=== PATIENT | male | born 1990 ===

== ENCOUNTER 2017-08-24 08:38 | Emergency (ER) | payer BC, OTHER ==
[2017-08-24 09:04] VITALS: BP 145/82
--- NOTE | 2017-08-24 09:27 | UC ---
Throat Pain/Nasal Michael HPI - HPI Summary HPI Summary: Sore throat since yesterday. 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 No fever, vomiting or rashes. There is some skin sloughing of the left roof of the mouth that occurred yesterday. - History of Current Complaint Chief Complaint: UCRespiratory Stated Complaint: ST Time Seen by Provider: 08/24/17 09:19 Hx Obtained From: Patient Onset/Duration: Gradual Onset, Lasting Days Severity: Moderate Pain Intensity: 0 Cough: None Associated Signs & Symptoms: Positive: Dysphagia. Negative: Sinus Discomfort, Nasal Discharge, Fever, Vomiting, Rash - Allergies/Home Medications Allergies/Adverse Reactions: Allergies Allergy/AdvReac Type Severity Reaction Status Date / Time No Known Allergies Allergy Verified 08/24/17 08:57 Home Medications: Home Medications Ascorbic Acid [Vitamin C] 500 mg PO DAILY 08/24/17 [History Confirmed 08/24/17] Multivitamin [Multivitamins] 1 each PO DAILY 08/24/17 [History Confirmed ] PMH/Surg Hx/FS Hx/Imm Hx Previously Healthy: Yes - Surgical History Surgical History: Yes Surgery Procedure, Year, and Place: [place] - Family History Known Family History: Positive: Other - no throat related fh. - Social History Alcohol Use: None Substance Use Type: None Smoking Status (MU): Never Smoked Tobacco Review of Systems ENT: Sore Throat All Other Systems Reviewed And Are Negative: Yes Physical Exam Triage Information Reviewed: Yes Appearance: Well-Appearing, No Pain Distress, Well-Nourished Vital Signs: Initial Vital Signs Temp 98.5 F 08/24/17 08:59 Pulse 77 08/24/17 08:59 Resp 20 08/24/17 08:59 BP 145/82 08/24/17 08:59 Pulse Ox 100 08/24/17 08:59 Vital Signs Reviewed: Yes Eyes: Positive: Conjunctiva Clear. Negative: Conjunctiva Inflamed ENT: Positive: Pharyngeal erythema, TMs normal, Uvula midline. Negative: Nasal congestion, Nasal drainage, TM bulging, TM dull, TM red, Tonsillar swelling, Tonsillar exudate, Trismus, Muffled voice Neck exam: Normal Neck: Positive: Supple, Nontender, No Lymphadenopathy Respiratory: Positive: Lungs clear, Normal breath sounds, No respiratory distress, No accessory muscle use. Negative: Respiratory distress, Decreased breath sounds, Accessory muscle use, Crackles, Rhonchi, Stridor Cardiovascular: Positive: No Murmur, Pulses Normal, Brisk Capillary Refill Abdomen Description: Negative: Distended, Guarding Musculoskeletal: Positive: ROM Intact, No Edema Neurological: Positive: Alert, Muscle Tone Normal. Negative: Fatigued Psychological: Positive: Age Appropriate Behavior Skin: Negative: rashes Throat Pain/Nasal Course/Dx - Differential Dx/Diagnosis Provider Diagnoses: sore throat- viral Discharge - Sign-Out/Discharge Documenting (check all that apply): Discharge - Discharge Plan Condition: Good Disposition: HOME Patient Education Materials: Pharyngitis (ED) Referrals: Non Staff,Doctor [Primary Care Provider] - - Billing Disposition and Condition Condition: GOOD Disposition: HOME
== END 2017-08-24 09:48 | disposition home or self-care (01) ==
LOC: UCCORT 08:38
DX: J02.8 Acute pharyngitis due to other specified organisms (principal)
CPT/HCPCS: 87651; 99201; G0463